=== PATIENT | male | born 1980 | race Hispanic/Latino ===

== ENCOUNTER 2017-01-12 06:10 | Emergency (ER) | payer OTHER ==
[2017-01-12 06:18] VITALS: BP 147/94; PULSE 102; RESP 18; TEMP 97.7; O2SAT 99
--- NOTE | 2017-01-12 06:23 | ED PDOC ---
HPI: Psych/Substance Abuse Time Seen by Provider: 01/12/17 06:20 Chief Complaint (Nursing): Alcohol Ingestion History Per: Patient History/Exam Limitations: no limitations Onset/Duration Of Symptoms: Hrs Additional Complaint(s): admits to drinking alcohol today and fell asleep outside, pt. states he's sober now and wishes to leave, pt. is walking with steady gait with clear speech. alert. Past Medical History Reviewed: Historical Data, Nursing Documentation, Vital Signs Vital Signs: Last Vital Signs Temp 97.7 F 01/12/17 06:15 Pulse 102 H 01/12/17 06:15 Resp 18 01/12/17 06:15 BP 147/94 H 01/12/17 06:15 Pulse Ox 99 01/12/17 06:15 - Family History Family History: States: Unknown Family Hx - Home Medications Home Medications: Ambulatory Orders Medication Instructions Recorded Cyclobenzaprine [Cyclobenzaprine 10 mg PO TID #20 tab 03/22/16 HCl] Ibuprofen [Motrin] 600 mg PO Q6 #20 tab 03/22/16 oxyCODONE/Acetaminophen [Percocet 1 ea PO Q6 PRN #5 tab 03/22/16 5/325 mg Tab] Ibuprofen [Motrin Tab] 600 mg PO Q8 #30 tab 03/29/16 Lidocaine 5% [Lidoderm] 1 patch TP DAILY #30 patch 03/29/16 oxyCODONE/Acetaminophen [Percocet 1 tab PO QID PRN #20 tab 03/29/16 5/325 mg Tab] - Allergies Allergies/Adverse Reactions: Allergies Allergy/AdvReac Type Severity Reaction Status Date / Time No Known Allergies Allergy Verified 03/29/16 15:22 Review of Systems ROS Statement: Except As Marked, All Systems Reviewed And Found Negative Physical Exam - Reviewed Nursing Documentation Reviewed: Yes Vital Signs Reviewed: Yes - Physical Exam Appears: Positive for: Well, Non-toxic, No Acute Distress Head Exam: Positive for: ATRAUMATIC, NORMAL INSPECTION, NORMOCEPHALIC Skin: Positive for: Normal Color, Warm, DRY Eye Exam: Positive for: EOMI, Normal appearance, PERRL ENT: Positive for: Normal ENT Inspection Neck: Positive for: Normal, Painless ROM Cardiovascular/Chest: Positive for: Regular Rate, Rhythm Respiratory: Positive for: CNT, Normal Breath Sounds Gastrointestinal/Abdominal: Positive for: Normal Exam, Bowel Sounds, Soft Back: Positive for: Normal Inspection Extremity: Positive for: Normal ROM Neurologic/Psych: Positive for: Alert, Oriented - ECG O2 Sat by Pulse Oximetry: 99 Pulse Ox Interpretation: Normal Medical Decision Making Medical Decision Making: Pt. sober and alert, gait steady, cleared for dischrage. Disposition - Clinical Impression Clinical Impression: Alcohol abuse - Disposition Referrals: Alcoholics Anonymous [Outside] Disposition Time: 06:23 Condition: STABLE Instructions: Alcohol Intoxication (ED)
== END 2017-01-12 06:45 | disposition home or self-care (01) ==
LOC: H.ER 06:10
DX: F10.129 Alcohol abuse with intoxication, unspecified (principal)